=== PATIENT | male | born 1965 | race Caucasian/White ===

== ENCOUNTER 2016-12-19 19:02 | Emergency (ER) | payer MEDICAID ==
--- NOTE | 2016-12-19 20:01 | ER Document Report ---
ED Medical Screen (RME) - General Chief Complaint: Abdominal Pain Stated Complaint: FEVER,ABDOMINAL PAIN Mode of Arrival: Ambulatory Information source: Patient Notes: The patient arrives with complaints of lower abdominal pain with diarrhea and fever that started 2 days ago. He vomited yesterday, but denies any vomiting now. Denies any blood in the stool. Is a history of an umbilical hernia. He' s had no prior abdominal surgeries. Denies any urinary symptoms. He has tenderness to the left lower quadrant on exam. An initial examination was made on the patient as part of the triage process, and it was determined a more comprehensive evaluation was necessary. Initial labs were ordered and patient was transferred to another provider in the ED who assumed care and finished evaluation and plan. TRAVEL OUTSIDE OF THE [place] IN LAST 30 DAYS: No - Related Data Allergies/Adverse Reactions: No Known Allergies Allergy (Unverified 10/07/13 20:25) Past Medical History Renal/ Medical History: Denies: Hx Peritoneal Dialysis - Immunizations Hx Diphtheria, Pertussis, Tetanus Vaccination: Yes Physical Exam - Vital signs Vitals: Temp Pulse Resp BP Pulse Ox 98.5 F 106 H 20 113/66 100 12/19/16 19:28 12/19/16 19:28 12/19/16 19:28 12/19/16 19:28 12/19/16 19:28 Course - Vital Signs Vital signs: Temp Pulse Resp BP Pulse Ox 98.5 F 106 H 20 113/66 100 12/19/16 19:28 12/19/16 19:28 12/19/16 19:28 12/19/16 19:28 12/19/16 19:28
[2016-12-19 20:17] LABS: ABSOLUTE LYMPHOCYTES (AUTO) 2.4 10^3/uL (0.5-4.7); ABSOLUTE MONOCYTES (AUTO) 1.4 10^3/uL (0.1-1.4); ABSOLUTE NEUT (AUTO) 10.8 10^3/uL (1.7-8.2); BASOPHILS % (AUTO) 0.3 % (0-2); EOSINOPHILS % (AUTO) 0.3 % (0-6); HEMATOCRIT 49.1 % (37.9-51.0); HEMOGLOBIN 16.9 g/dL (13.5-17.0); HGB HCT DIFFERENCE 1.6; LYMPHOCYTES % (AUTO) 16.6 % (13-45); MEAN CORPUSCULAR HEMOGLOBIN 29.8 pg (27.0-33.4); MEAN CORPUSCULAR HGB CONC 34.4 g/dL (32.0-36.0); MEAN CORPUSCULAR VOLUME 87 fl (80-97); MONOCYTES % (AUTO) 9.5 % (3-13); RED BLOOD COUNT 5.67 10^6/uL (4.35-5.55); RED CELL DISTRIBUTION WIDTH 13.5 % (11.5-14.0); SEGMENTED NEUTROPHILS % (AUTO) 73.3 % (42-78); WHITE BLOOD COUNT 14.8 10^3/uL (4.0-10.5)
[2016-12-19 20:23] LABS: APPEARANCE,URINE SLIGHTLY-CLOUDY; BILIRUBIN,URINE NEGATIVE (NEGATIVE); GLUCOSE, URINE NEGATIVE (NEGATIVE); KETONES,URINE NEGATIVE (NEGATIVE); LEUKOCYTE ESTERASE,URINE NEGATIVE (NEGATIVE); NITRITE,URINE NEGATIVE (NEGATIVE); PROTEIN,URINE 100 mg/dL (NEGATIVE); URINE SPECIFIC GRAVITY 1.034; UROBILINOGEN,URINE NEGATIVE mg/dL (<2.0)
[2016-12-19 20:34] LABS: ALANINE AMINOTRANSFERASE 133 U/L (21-72); ALBUMIN 4.4 g/dL (3.5-5.0); ALKALINE PHOSPHATASE 109 U/L (38-126); ANION GAP 16 (5-19); ASPARTATE AMINO TRANSFERASE 126 U/L (17-59); BILIRUBIN,DIRECT 0.3 mg/dL (0.0-0.4); BILIRUBIN,TOTAL 0.8 mg/dL (0.2-1.3); BLOOD UREA NITROGEN 12 mg/dL (7-20); CALCIUM 9.8 mg/dL (8.4-10.2); CARBON DIOXIDE 23 mmol/L (22-30); CHLORIDE 101 mmol/L (98-107); CREATININE RESULT 0.91 mg/dL (0.52-1.25); GLUCOSE 112 mg/dL (75-110); LIPASE 118.6 U/L (23-300); POTASSIUM 4.2 mmol/L (3.6-5.0); SODIUM 139.7 mmol/L (137-145); TOTAL PROTEIN 7.9 g/dL (6.3-8.2)
[2016-12-19] MEDS ORDERED: ONDANSETRON HCL INJ/PF 4 MG/2 ML SDV IV ONE (23:24)
[2016-12-19] MEDS ORDERED: NORMAL SALINE 1000 ML 1,000 ML IV ONE (23:24)
[2016-12-19] MEDS ORDERED: KETOROLAC TROMETHAMINE INJ/PF 30 MG/1 ML SDV IV ONE (23:24)
--- NOTE | 2016-12-19 23:24 | ER Document Report ---
ED General - General Chief Complaint: Abdominal Pain Stated Complaint: FEVER,ABDOMINAL PAIN Mode of Arrival: Ambulatory Notes: Patient is a 51-year-old male who presents with 2 days of fever, diarrhea, vomiting, and diffuse lower abdominal pain. Describes the pain in his abdomen as being a dull, constant, cramping pain. Nothing improves or worsens the pain. States that he is had persistent associated diarrhea that is worsened by any kind of oral intake including fluids. He has had 2 episodes of nonbilious vomiting since onset of his abdominal pain and diarrhea. He has had a fever at home according to 102.1F. He has not tried anything to improve his symptoms has not noted anything worsens the symptoms. His symptoms have been unchanged since onset. He has no history of similar symptoms. No known sick contacts. He has not seen his primary care doctor regarding today's concerns. TRAVEL OUTSIDE OF THE [place] IN LAST 30 DAYS: No - Related Data Allergies/Adverse Reactions: No Known Allergies Allergy (Unverified 10/07/13 20:25) Past Medical History - General Information source: Patient - Social History Smoking Status: Never Smoker Frequency of alcohol use: None Drug Abuse: None Lives with: Spouse/Significant other Family History: CAD Patient has suicidal ideation: No Patient has homicidal ideation: No Renal/ Medical History: Denies: Hx Peritoneal Dialysis - Immunizations Hx Diphtheria, Pertussis, Tetanus Vaccination: Yes Review of Systems - Review of Systems Notes: Constitutional: Negative for fever. HENT: Negative for sore throat. Eyes: Negative for visual changes. Cardiovascular: Negative for chest pain. Respiratory: Negative for shortness of breath. Gastrointestinal: Positive for abdominal pain, vomiting and diarrhea. Genitourinary: Negative for dysuria. Musculoskeletal: Negative for back pain. Skin: Negative for rash. Neurological: Negative for headaches, weakness or numbness. 10 point ROS negative except as marked above and in HPI. Physical Exam - Vital signs Vitals: Temp Pulse Resp BP Pulse Ox 98.5 F 106 H 20 113/66 100 12/19/16 19:28 12/19/16 19:28 12/19/16 19:28 12/19/16 19:28 12/19/16 19:28 Interpretation: Tachycardic Notes: PHYSICAL EXAMINATION: GENERAL: Appears mildly uncomfortable but in no acute distress HEAD: Atraumatic, normocephalic. EYES: Pupils equal round and reactive to light, extraocular movements intact, sclera anicteric, conjunctiva are normal. ENT: nares patent, oropharynx clear without exudates. Moderately dry mucous membranes. NECK: Normal range of motion, supple without lymphadenopathy LUNGS: Breath sounds clear to auscultation bilaterally and equal. No wheezes rales or rhonchi. HEART: Regular rate and rhythm without murmurs ABDOMEN: Soft, diffuse abdominal tenderness without any focality, normoactive bowel sounds. No guarding, no rebound. No masses appreciated. EXTREMITIES: Normal range of motion, no pitting or edema. No cyanosis. NEUROLOGICAL: No focal neurological deficits. Moves all extremities spontaneously and on command. PSYCH: Normal mood, normal affect. SKIN: Warm, Dry, normal turgor, no rashes or lesions noted. Course - Re-evaluation Re-evalutation: 12/19/16 23:23 Patient presents with diffuse lower abdominal pain in the setting of vomiting and diarrhea as well as fever at home. Most likely consistent with a bacterial colitis versus diverticulitis. He does not have any focal abdominal tenderness on examination. The bedside right upper quadrant ultrasound does not demonstrate any evidence of an acute cholecystitis. Labs are remarkable for a mild leukocytosis and mild elevations of AST and ALTs which are nonspecific. Will pursue CT abdomen and pelvis IV contrast only to exclude bowel perforation , intra-abdominal abscess, and less likely an acute bowel obstruction given clinical history. 12/20/16 02:05 CT scan shows sigmoid colitis which was the most likely clinical diagnosis based on history and exam. No evidence of perforation or obstruction. Patient' s clinical history given fever, vomiting and diarrhea is most clinical consistent with an infectious etiology. Patient will be treated with ciprofloxacin and metronidazole.At this time will discharge with return precautions and follow-up recommendations. Verbal discharge instructions given a the bedside and opportunity for questions given. Medication warnings reviewed. Patient is in agreement with this plan and has verbalized understanding of return precautions and the need for primary care follow-up in the next 24-72 hours. \ - Vital Signs Vital signs: Temp Pulse Resp BP Pulse Ox 97.7 F 74 16 110/63 95 12/20/16 02:32 12/20/16 02:32 12/20/16 02:32 12/20/16 02:32 12/20/16 02:32 - Laboratory Result Diagrams: 12/19/16 19:00 12/19/16 19:00 Laboratory results interpreted by me: 12/19/16 12/19/16 12/19/16 19:00 19:00 19:00 WBC 14.8 H RBC 5.67 H Absolute Neutrophils 10.8 H Glucose 112 H AST 126 H ALT 133 H Urine Protein 100 H - Diagnostic Test Radiology reviewed: Reports reviewed Discharge - Discharge Clinical Impression: Colitis Condition: Good Disposition: HOME, SELF-CARE Additional Instructions: You were seen today for focal pain in your left lower quadrant. Your labs, exam , and imaging suggest a diagnosis of sigmoid colitis. This is an inflammation of a part of your colon. You are being started on antibiotics to treat this infection and inflammation. Please take all of them as directed and complete them even if your symptoms resolve. Please follow-up with your primary care physician within the next 48 hours. Return to the emergency department immediately if you develop worsening pain, persistent vomiting, began having bloody stools, develop a fever of greater than 101F, or have any other symptoms that are concerning to you. Prescriptions: Ciprofloxacin HCl [Cipro 500 mg Tablet] 500 mg PO BID #20 tablet Metronidazole [Flagyl 500 mg Tablet] 500 mg PO Q6H #40 tablet
[2016-12-20] MEDS ORDERED: CIPROFLOXACIN HCL 500 MG TABLET PO ONE (02:05)
[2016-12-20] MEDS ORDERED: METRONIDAZOLE 500 MG TABLET PO ONE (02:05)
[2016-12-20 02:33] VITALS: BP 110/63
== END 2016-12-20 02:15 | disposition home or self-care (01) ==
LOC: ER 19:02
DX: K52.9 Noninfective gastroenteritis and colitis, unspecified (principal); R50.9 Fever, unspecified; R19.7 Diarrhea, unspecified; R11.10 Vomiting, unspecified
CPT/HCPCS: 99284; 96361; 96374; 96375; 36415; 83690; 85025; 80053; 81001; 74177; J1885; J2405; J7030

== ENCOUNTER 2017-08-13 18:40 | Emergency (ER) | payer MEDICAID ==
--- NOTE | 2017-08-13 19:39 | ER Document Report ---
ED Respiratory Problem - General Chief Complaint: Rib Pain Stated Complaint: LEFT SIDE PAIN Time Seen by Provider: 08/13/17 19:16 Mode of Arrival: Ambulatory Information source: Patient Notes: 52-year-old male presents to ED for complaint of left rib pain. He states he fell about 3 weeks ago landed on his left arm and ribs when he was playing football with his grandkids and children. Patient states that his son is 34 years old and he and his son were playing and he got tangled up and they both fell he the patient landed on his left ribs and side. He states the pain got much better than yesterday it got worse again. He states is very painful to take a deep breath. TRAVEL OUTSIDE OF THE [place] IN LAST 30 DAYS: No - HPI Patient complains to provider of: Chest pain - Left rib pain Onset: Other - Started 3 weeks ago got better then got worse yesterday Duration: Intermittent episodes Initiating Event: Other - Fall 3 weeks ago Quality of pain: Sharp Severity: Moderate Pain Level: 4 Context: Smoker, Other - Pain to left ribs Short of Breath: Mild Chest pain/discomfort: Intermittent, Left - Ribs, Pain Cough: denies: Nonproductive, Productive Sputum amount: None Associated symptoms: Chest pain/discomfort - Left rib pain Worsened by: Cough or deep breath Similar symptoms previously: Yes Recently seen / treated by doctor: No - Related Data Allergies/Adverse Reactions: acetaminophen [From Percocet] Allergy (Verified 08/13/17 18:41) hydrocodone Allergy (Verified 08/13/17 18:41) oxycodone [From Percocet] Allergy (Verified 08/13/17 18:41) Past Medical History - General Information source: Patient - Social History Smoking Status: Current Every Day Smoker Cigarette use (# per day): Yes - One half pack per day Chew tobacco use (# tins/day): No Smoking Education Provided: Yes - Less than 2 minutes Frequency of alcohol use: Social Drug Abuse: None Occupation: Contractor Lives with: Family Family History: CAD, Hyperlipidemia, Hypertension, Malignancy. denies: Arthritis, COPD, CVA, DM, Thyroid Disfunction Patient has suicidal ideation: No Patient has homicidal ideation: No - Past Medical History Cardiac Medical History: Reports: None Pulmonary Medical History: Reports: None EENT Medical History: Reports: None Neurological Medical History: Reports: None Endocrine Medical History: Reports: None Renal/ Medical History: Reports: None Malignancy Medical History: Reports None GI Medical History: Reports: Other - Colitis, hernia has not had it repaired Musculoskeltal Medical History: Reports Hx Musculoskeletal Trauma - Rotator cuff tear right Skin Medical History: Reports None Psychiatric Medical History: Reports: None Traumatic Medical History: Reports: None Infectious Medical History: Reports: None Past Surgical History: Reports: Hx Adenoidectomy, Hx Orthopedic Surgery - Right rotator cuff repair, Hx Tonsillectomy - Immunizations Immunizations up to date: Yes Hx Diphtheria, Pertussis, Tetanus Vaccination: Yes Review of Systems - Review of Systems Constitutional: No symptoms reported EENT: No symptoms reported Cardiovascular: No symptoms reported Respiratory: Other - Right rib pain hurts to take a deep breath hurts to cough hurts to move Gastrointestinal: No symptoms reported Genitourinary: No symptoms reported Male Genitourinary: No symptoms reported Musculoskeletal: No symptoms reported Skin: No symptoms reported Hematologic/Lymphatic: No symptoms reported Neurological/Psychological: No symptoms reported Physical Exam - Vital signs Vitals: Temp Pulse Resp BP Pulse Ox 99.2 F 98 18 121/73 96 08/13/17 18:45 08/13/17 18:45 08/13/17 18:45 08/13/17 18:45 08/13/17 18:45 Interpretation: Normal - General General appearance: Appears well, Alert - HEENT Head: Normocephalic, Atraumatic Eyes: Normal Pupils: PERRL - Respiratory Respiratory status: No respiratory distress Chest status: Tender, Pain with cough, Pain with deep breathing Breath sounds: Normal Chest palpation: Normal - Cardiovascular Rhythm: Regular Heart sounds: Normal auscultation Murmur: No - Abdominal Inspection: Normal Distension: No distension Bowel sounds: Normal Tenderness: Nontender Organomegaly: No organomegaly - Back Back: Normal, Nontender - Extremities General upper extremity: Normal inspection, Nontender, Normal color, Normal ROM , Normal temperature General lower extremity: Normal inspection, Nontender, Normal color, Normal ROM , Normal temperature, Normal weight bearing. No: Sarthak's sign - Neurological Neuro grossly intact: Yes Cognition: Normal Orientation: AAOx4 [place] Coma Scale Eye Opening: Spontaneous [place] Coma Scale Verbal: Oriented [place] Scale Motor: Obeys Commands [place] Scale Total: 15 Speech: Normal Motor strength normal: LUE, RUE, LLE, RLE Sensory: Normal - Psychological Associated symptoms: Normal affect, Normal mood - Skin Skin Temperature: Warm Skin Moisture: Dry Skin Color: Normal Course - Re-evaluation Re-evalutation: 08/13/17 20:49 X-ray discussed with patient. Patient has atelectasis and rib pain will treat with doxycycline to ensure he does not develop a pneumonia. Patient was instructed to please follow-up with her primary doctor within the next week to ensure that his pain is improving and he does not have pneumonia. - Vital Signs Vital signs: Temp Pulse Resp BP Pulse Ox 99.2 F 98 18 121/73 96 08/13/17 18:45 08/13/17 18:45 08/13/17 18:45 08/13/17 18:45 08/13/17 18:45 - Diagnostic Test Radiology reviewed: Image reviewed, Reports reviewed Discharge - Discharge Clinical Impression: Atelectasis, Rib pain on left side Condition: Stable Disposition: HOME, SELF-CARE Instructions: Family Physicians / Practices Additional Instructions: Atelectasis Your symptoms are due to partial collapse of the lung, called atelectasis. When lung air sacs aren't filled properly with air, they can collapse. This is common after surgery. It may occur whenever breathing is weak or painful. To correct the collapse, we need to get your lung air sacs to open. Do breathing exercises for the next two days. Every 15 minutes while awake, rapidly suck in a full breath and hold it a few seconds. Sometimes we'll prescribe a machine to measure your progress. Call or return if there's increasing shortness of breath, fever or chills, increasing chest pain, productive cough, or coughing of blood. Rib Contusion You have been diagnosed as having bruised ribs. It will usually take a few weeks for these injured ribs to heal. You should cough or take a deep breath at least every hour or two to prevent lung complications. You should not engage in any strenuous physical activity until released by your physician. The usual rule is "if it hurts, don' t do it." Return if you develop any of the following: (1) Fever or chills. (2) Persistent cough, coughing up blood, or shortness of breath. (3) Increasing pain. (4) Weakness, lightheadedness, or fainting. Doxycycline Doxycycline (Vibramycin, Doryx) is an antibiotic of the tetracycline family. This type of drug is useful for infections of the respiratory tract and genital tract, and is sometimes used for intestinal infections. Unlike most tetracyclines, doxycycline can be taken with food. It is longer acting, and (usually) less prone to side effects than regular tetracycline. Tetracycline antibiotics can stain immature teeth and SHOULD NOT BE TAKEN BY CHILDREN, NURSING MOTHERS, OR WOMEN. Tetracyclines can make you more prone to sunburn. Abdominal cramping, nausea, and diarrhea are occasional side effects. Women may experience vaginal yeast infections. Call the doctor at once if you develop hives, itching, shortness of breath , or lightheadedness. Acetaminophen Acetaminophen may be taken for pain relief or fever control. It's much safer than aspirin, offering a wider range of "safe" dosages. It is safe during . Some brand names are Tylenol, Panadol, Datril, Anacin 3, Tempra, and Liquiprin. Acetaminophen can be repeated every four hours. The following are maximum recommended dosages: WEIGHT Dose Drops Elixir Chewable( 80mg) (LBS.) drprs=droppers tsp=teaspoon 6 40 mg .4 ml (1/2) 6-11 80 mg .8 ml (full) 1/2 tsp 1 tab 12-16 120 mg 1 1/2 drprs 3/4 tsp 1 1/2 tabs 17-23 160 mg 2 drprs 1 tsp 2 tabs 24-30 240 mg 3 drprs 1 1/2 tsp 3 tabs 30-35 320 mg 2 tsp 4 tabs 36-41 360 mg 2 1/4 tsp 4 1 /2 tabs 42-47 400 mg 2 1/2 tsp 5 tabs 48-53 480 mg 3 tsp 6 tabs 54-59 520 mg 3 1/4 tsp 6 1 /2 tabs 60-64 560 mg 3 1/2 tsp 7 tabs 65-70 600 mg 3 3/4 tsp 7 1 /2 tabs 71-76 640 mg 4 tsp 8 tabs 77-82 720 mg 4 1/2 tsp 9 tabs 83-88 800 mg 5 tsp 10 tabs >89 pounds or adults 650 mg to 900 mg Acetaminophen can be repeated every four hours. Maximum daily dose not to exceed 4000 mg. These maximum recommended dosages are slightly higher than the dosages written on the product container, but these dosages are very safe and well below the toxic dosage for acetaminophen. Ibuprofen Ibuprofen is an excellent, safe drug for pain control. In addition, it has potent antiinflammatory effects which are beneficial, especially in the treatment of injuries, arthritis, or tendonitis. It's best to take ibuprofen with food. Persons with ulcer disease or allergy to aspirin should notify their physician of this before taking ibuprofen. Take the medication exactly as prescribed. Don't take additional doses unless instructed to do so by your doctor. If you develop wheezing, shortness of breath, hives, faintness, stomach pain, vomiting, or dark black stools, return for re-evaluation at once. FOLLOW-UP CARE: If you have been referred to a physician for follow-up care, call the physician s office for an appointment as you were instructed or within the next two days. If you experience worsening or a significant change in your symptoms, notify the physician immediately or return to the Emergency Department at any time for re-evaluation. Prescriptions: Doxycycline Hyclate 100 mg PO BID #20 tablet Forms: Smoking Cessation Education, Return to Work
--- NOTE | 2017-08-13 20:10 | RADIOLOGY REPORT (SQ) ---
EXAM DESCRIPTION: RIBS LEFT W/PA CHEST COMPLETED DATE/TIME: 08/13/2017 7:58 pm REASON FOR STUDY: fall 3 weeks ago pain increased yesterday COMPARISON: None. TECHNIQUE: Frontal view of the chest and additional views of the left ribs acquired. NUMBER OF VIEWS: Five view. LIMITATIONS: None. FINDINGS: FRONTAL CXR: No pneumothorax. No pleural effusion. Minimal basilar linear subsegmental a telectasis . RIBS: No displaced rib fractures. No lytic or blastic bony lesions. OTHER: No other significant finding. IMPRESSION: NO PNEUMOTHORAX. NO DISPLACED RIB FRACTURES.Minimal basilar linear subsegmental atelect asis . COMMENT: SITE OF TRAUMA/COMPLAINT MARKED/STAMP COMPLETED: No TECHNICAL DOCUMENTATION: JOB ID: [id number] [place]-72 2010 [employer]- All Rights Reserved
[2017-08-13] MEDS ORDERED: DOXYCYCLINE HYCLATE 100 MG TABLET PO ONE (20:43)
[2017-08-13 20:55] VITALS: BP 130/70
== END 2017-08-13 20:55 | disposition home or self-care (01) ==
LOC: ER 18:40
DX: R07.81 Pleurodynia (principal); W18.39XA Other fall on same level, initial encounter; Y93.61 Activity, american tackle football; Z88.5 Allergy status to narcotic agent; J98.11 Atelectasis; F17.210 Nicotine dependence, cigarettes, uncomplicated; Z71.6 Tobacco abuse counseling
CPT/HCPCS: 99283

== ENCOUNTER 2020-01-28 14:59 | Emergency (ER) | payer SELFPAY ==
--- NOTE | 2020-01-28 15:06 | ER Document Report ---
ED Medical Screen (RME) - General Chief Complaint: Slurred Speech Stated Complaint: SLURRED SPEECH Time Seen by Provider: 01/28/20 15:04 Mode of Arrival: Ambulatory Information source: Patient Notes: 54-year-old male presented to ED for states that he started having slurring his speech since 630 this morning. He states he had a swelling and change to his right eye on Monday and then he had some drooping to the right side of his face starting at 630 this morning. He does not have any palmar drift. He does not have any slurring to his speech. He is alert oriented answering all questions appropriately. He has equal strength in his arms and legs. I have greeted and performed a rapid initial assessment of this patient. A comprehensive ED assessment and evaluation of the patient, analysis of test results and completion of medical decision making process will be conducted by an additional ED providers. TRAVEL OUTSIDE OF THE [place] IN LAST 30 DAYS: No - Related Data Allergies/Adverse Reactions: acetaminophen [From Percocet] Allergy (Verified 08/13/17 18:41) hydrocodone Allergy (Verified 08/13/17 18:41) oxycodone [From Percocet] Allergy (Verified 08/13/17 18:41) Past Medical History Renal/ Medical History: Denies: Hx Peritoneal Dialysis Musculoskeltal Medical History: Reports Hx Musculoskeletal Trauma - Rotator cuff tear right Past Surgical History: Reports: Hx Adenoidectomy, Hx Orthopedic Surgery - Right rotator cuff repair, Hx Tonsillectomy - Immunizations Immunizations up to date: Yes Hx Diphtheria, Pertussis, Tetanus Vaccination: Yes
--- NOTE | 2020-01-28 15:22 | RADIOLOGY REPORT (SQ) ---
EXAM DESCRIPTION: CT HEAD WITHOUT IMAGES COMPLETED DATE/TIME: 01/28/2020 3:12 pm REASON FOR STUDY: Change in speech and slight droop since 630 COMPARISON: None. TECHNIQUE: Axial images acquired through the brain without intravenous contrast. Images reviewed wi th bone, brain and subdural windows. Additional sagittal and coronal reconstructions were generated. Images stored on PACS. All CT scanners at this facility use dose modulation, iterative reconstruction, and/or weight based d osing when appropriate to reduce radiation dose to as low as reasonably achievable (ALARA). [facility]: Dose Right [facility]: CareDose [facility]: Dose Right [facility]: Teradose 4D [facility]: Pidefarma RADIATION DOSE: CT Rad equipment meets quality standard of care and radiation dose reduction techniq ues were employed. CTDIvol: 53.2 mGy. DLP: 1044 mGy-cm. LIMITATIONS: None. FINDINGS: There is no acute intracranial hemorrhage, vascular territorial infarct, extra-axial fluid collection, mass effect or midline shift. The breaux-white matter differentiation is preserved. Ther e is no effacement of the cerebral sulci or basal subarachnoid cisterns. The caliber of the ventricl es is concordant with the degree of sulcation. The orbits and globes are intact. The paranasal sinuses are clear. There is no fracture of the calv arium. IMPRESSION: No acute intracranial abnormality. EVIDENCE OF ACUTE STROKE: NO. COMMENT: Quality ID # [id number]: Final reports with documentation of one or more dose reduction techniques (e.g., Automated exposure control, adjustment of the mA and/or kV according to patient size, use of iterative reconstruction technique) TECHNICAL DOCUMENTATION: JOB ID: [id number] 2010 [employer]- All Rights Reserved Reading location - IP/workstation name: [email or web address]
--- NOTE | 2020-01-28 15:28 | ER Document Report ---
ED Neuro Symptoms/Deficit - General Chief Complaint: Slurred Speech Stated Complaint: SLURRED SPEECH Time Seen by Provider: 01/28/20 15:04 Primary Care Provider: [facility] [Provider Group] - Follow up as needed [facility] [Provider Group] - Follow up as needed NATALY ROSA DO [ASSOCIATE] - Follow up as needed Mode of Arrival: Ambulatory Notes: Patient is a 54-year-old male who presents to the emergency department with a chief complaint of left-sided facial droop and slurred speech that started this morning at 630. Patient states that about 5 days ago he thought he got something in his eye. And about 3 to 4 days ago, he started have some tingling in his tongue. Denies any past medical history. Patient is a current everyday smoker. TRAVEL OUTSIDE OF THE [place] IN LAST 30 DAYS: No - Related Data Allergies/Adverse Reactions: acetaminophen [From Percocet] Allergy (Verified 08/13/17 18:41) hydrocodone Allergy (Verified 08/13/17 18:41) oxycodone [From Percocet] Allergy (Verified 08/13/17 18:41) Past Medical History - General Information source: Patient - Social History Smoking Status: Current Every Day Smoker Family History: CAD, Hyperlipidemia, Hypertension, Malignancy. denies: Arthritis, COPD, CVA, DM, Thyroid Disfunction Renal/ Medical History: Denies: Hx Peritoneal Dialysis Musculoskeletal Medical History: Reports Hx Musculoskeletal Trauma - Rotator cuff tear right Past Surgical History: Reports: Hx Adenoidectomy, Hx Orthopedic Surgery - Right rotator cuff repair, Hx Tonsillectomy - Immunizations Immunizations up to date: Yes Hx Diphtheria, Pertussis, Tetanus Vaccination: Yes Review of Systems - Review of Systems Notes: REVIEW OF SYSTEMS: CONSTITUTIONAL : Denies recent illness. Denies recent unintentional weight loss. Denies fever, chills, or sweats. EENT: Denies eye, ear, throat, or mouth pain, discharge, or symptoms. Denies nasal or sinus congestion. CARDIOVASCULAR: Denies chest pain. RESPIRATORY: Denies shortness of breath, cough, congestion, difficulty breathing, or wheezing. GASTROINTESTINAL: Denies nausea, vomiting, and diarrhea. Denies abdominal pain. Denies constipation. GENITOURINARY: Denies difficulty urinating, burning, blood in urine, urgency or frequency. MUSCULOSKELETAL: Denies neck and back pain. Denies joint pain or swelling. SKIN: Denies rash, itchiness, or lesions HEMATOLOGIC : Denies easy bruising or bleeding. LYMPHATIC: Denies swollen, painful, enlarged glands. NEUROLOGICAL: See HPI. PSYCHIATRIC: Denies stress, anxiety, alteration in sleep patterns, or depression. All other systems reviewed and negative. Physical Exam - Vital signs Vitals: Temp 97.9 F 01/28/20 15:00 - Notes Notes: PHYSICAL EXAMINATION: GENERAL: Appears well, healthy, well-nourished, no acute distress. HEAD: Normocephalic, atraumatic. Left-sided facial droop, also with inability to blink left eye autonomically. EYES: PERRL, conjunctiva normal, all extraocular movements intact, sclera nonicteric ENT: Moist mucous membranes. NECK: Supple, no noticeable swelling, redness, rash. Normal range of motion. LUNGS: Equal breath sounds bilaterally and clear to auscultation. No wheezes rales or rhonchi. CARDIOVASCULAR: S1-S2, regular rate, regular rhythm. Radial pulses 2+, normal. ABDOMEN: Normoactive bowel sounds. Soft, nontender, no guarding, no rebound tenderness, and no masses palpated. EXTREMITIES: Normal strength and range of motion, no pitting or edema. No cyanosis. NEUROLOGICAL: Moves all extremities upon command. Strength 5/5 in all ext remities. PSYCH: Normal mood, normal affect. SKIN: Warm, dry. No rash, lesions, ulcerations noted. Normal skin turgor. Course - Re-evaluation Re-evalutation: 01/28/20 17:24 CT of the head is unremarkable. Patient has a unspecified leukocytosis of 12,000. This may be due to the fact that he has Bright's palsy and may have had some type of infectious process that caused him to develop Bright's palsy. Chemistries are unremarkable. Coags are normal. I had Dr. Pato Cain, my attending evaluate the patient and he agrees with me that the patient has Bright's palsy. Patient will be started on prednisone. Will refer to ENT. We will also give him an eye patch from the emergency department. He will be started on eye lubricant. Follow-up precautions were given. Verbal discharge instructions were given to the patient. They verbalized understanding. They are stable for discharge. - Vital Signs Vital signs: Temp Pulse Resp BP Pulse Ox 98.0 F 16 120/66 96 01/28/20 18:00 01/28/20 18:01 01/28/20 18:01 01/28/20 18:01 - Laboratory Result Diagrams: 01/28/20 15:23 01/28/20 15:23 Laboratory results interpreted by me: 01/28/20 01/28/20 15:23 15:23 WBC 12.0 H Sodium 136.7 L - EKG Interpretation by Me Additional EKG results interpreted by me: 01/28/20 15:57 Sinus rhythm. Rate 86. NM 156; QRS 98; QT 352; QTc 421. No ST elevations or depressions noted. No previous EKG for comparison. Discharge - Discharge Clinical Impression: Bright's palsy, Slurred speech Condition: Stable Disposition: HOME, SELF-CARE Instructions: Bright's Palsy ([facility]), Steroid Medication Additional Instructions: You were seen today in the emergency department for left-sided facial droop. You have Bright's palsy. Your work-up was normal. I highly suggest that you follow-up with 1 of the clinics below in regards to this visit. Please stop smoking. Take your steroid. Wear your eye patch as much as possible and use the eye lubricant to help prevent dry eye and a corneal abrasion. Prescriptions: Prednisone [Deltasone 20 mg Tablet] 20 tab PO ASDIR 5 Days tablet Mineral Oil/Petrolatum,White [Systane Nighttime Eye Oint] 3.5 gm OP BID #1 oint...g. Referrals: NATALY ROSA DO [ASSOCIATE] - Follow up as needed [facility] [Provider Group] - Follow up as needed [facility] [Provider Group] - Follow up as needed
--- NOTE | 2020-01-28 15:34 | RADIOLOGY REPORT (SQ) ---
EXAM DESCRIPTION: CHEST SINGLE VIEW IMAGES COMPLETED DATE/TIME: 01/28/2020 3:15 pm REASON FOR STUDY: stroke alert COMPARISON: PA and lateral views of the chest from 10/07/2013. EXAM PARAMETERS: NUMBER OF VIEWS: One view. TECHNIQUE: An AP view of the chest was obtained. RADIATION DOSE: NA LIMITATIONS: None. FINDINGS: LUNGS AND PLEURA: No consolidation, pleural effusion or pneumothorax. MEDIASTINUM AND HILAR STRUCTURES: No mediastinal or hilar contour abnormality. HEART AND VASCULAR STRUCTURES: The cardiac silhouette and pulmonary vasculature are within normal yu its. BONES: No acute findings. HARDWARE: None in the chest. OTHER: No other finding. IMPRESSION: No acute cardiopulmonary process. TECHNICAL DOCUMENTATION: JOB ID: [id number] 2010 [employer]- All Rights Reserved Reading location - IP/workstation name: [email or web address]
[2020-01-28 15:40] LABS: ABSOLUTE EOSINOPHILS # (AUTO) 0.3 10^3/uL (0.0-0.6); ABSOLUTE LYMPHOCYTES (AUTO) 4.2 10^3/uL (0.5-4.7); ABSOLUTE MONOCYTES (AUTO) 1.1 10^3/uL (0.1-1.4); ABSOLUTE NEUT (AUTO) 6.3 10^3/uL (1.7-8.2); BASOPHILS % (AUTO) 0.2 % (0-2); EOSINOPHILS % (AUTO) 2.7 % (0-6); HEMATOCRIT 46.8 % (37.9-51.0); HEMOGLOBIN 16.2 g/dL (13.5-17.0); MEAN CORPUSCULAR HEMOGLOBIN 30.4 pg (27.0-33.4); MEAN CORPUSCULAR HGB CONC 34.6 g/dL (32.0-36.0); MEAN CORPUSCULAR VOLUME 88 fl (80-97); MONOCYTES % (AUTO) 9.3 % (3-13); PLATELET COUNT 289 10^3/uL (150-450); RED BLOOD COUNT 5.33 10^6/uL (4.35-5.55); RED CELL DISTRIBUTION WIDTH 13.4 % (11.5-14.0); SEGMENTED NEUTROPHILS % (AUTO) 52.8 % (42-78); TOTAL CELLS COUNTED % (AUTO) 100 %
[2020-01-28 15:45] LABS: INTERNATIONAL RATION (INR) 0.86; PARTIAL THROMBOPLASTIN TIME 31.4 SEC (23.5-35.8); PROTHROMBIN TIME 11.7 SEC (11.4-15.4)
[2020-01-28 15:57] LABS: BLOOD UREA NITROGEN 17 mg/dL (7-20); CALCIUM 9.4 mg/dL (8.4-10.2); GLUCOSE 105 mg/dL (75-110)
[2020-01-28 15:58] LABS: ALBUMIN 4.2 g/dL (3.5-5.0); ALKALINE PHOSPHATASE 66 U/L (38-126); ANION GAP 8 (5-19); ASPARTATE AMINO TRANSFERASE 29 U/L (17-59); BILIRUBIN,TOTAL 0.4 mg/dL (0.2-1.3); CARBON DIOXIDE 23 mmol/L (22-30); CHLORIDE 106 mmol/L (98-107); POTASSIUM 4.2 mmol/L (3.6-5.0); TOTAL PROTEIN 7.6 g/dL (6.3-8.2)
[2020-01-28 18:05] VITALS: BP 120/66
--- NOTE | 2020-01-28 18:16 | EKG REPORT ---
SEVERITY:- NORMAL ECG - SINUS RHYTHM : Confirmed by: Leoncio Taylor MD 28-Jan-2020 18:15:16
== END 2020-01-28 18:12 | disposition home or self-care (01) ==
LOC: ER 14:59
DX: G51.0 Bell's palsy (principal); R47.81 Slurred speech; R22.0 Localized swelling, mass and lump, head; Z88.6 Allergy status to analgesic agent
CPT/HCPCS: 36415; 70450; 71045; 80053; 85025; 85610; 85730; 93005; 93010; 99285